=== PATIENT | male | born 1950 | race Caucasian/White ===

== ENCOUNTER 2016-09-26 08:16 | Emergency (ER) | payer OTHER, MEDICARE ==
[~2016-09-26] VITALS: Wt 81.9 kg
[2016-09-26] MEDS ORDERED: HYDROCODONE/APAP (10/325) TAB PO ONE (09:30)
--- NOTE | 2016-09-26 09:33 | ERD ---
ER Documentation Chief Complaint Date/Time DATE: 09/26/16 TIME: 09:31 Chief Complaint L WRIST PAIN AND SWELLING FROM A GLF THIS AM. GOOD PULSES. + DEFORMITY HPI Patient is a 66-year-old male who presents with sudden onset, constant, moderate left wrist pain after a mechanical ground-level fall onto an outstretched hand. He reports that he got up to walk to the bathroom to urinate this morning and lost his balance and fell onto his left arm. He denies hitting his head or other injury. He denies loss of consciousness. He is right-hand dominant. ROS All systems reviewed and are negative except as per history of present illness. Medications Home Meds Active Scripts Tramadol HCl (Tramadol HCl) 50 Mg Tablet, 50 MG PO Q6H Y for PAIN, #24 TAB Prov:KIRSTY UMANZOR MD 09/26/16 PMhx/Soc Past medical history: Hypertension Past surgical history: Denies Social history: Drinks 4-5 alcoholic drinks per day. Smokes cigarettes. Denies illicit drugs. Hx Alcohol Use: No Hx Substance Use: No Hx Tobacco Use: No Smoking Status: Never smoker FmHx Family History: No coronary disease, No diabetes Physical Exam Vitals Vital Signs Date Time Temp Pulse Resp B/P Pulse Ox O2 Delivery O2 Flow Rate FiO2 09/26/16 08:28 97.9 81 20 137/78 98 Physical Exam Const: Alert, no acute distress Head: Atraumatic Eyes: Normal Conjunctiva, no pallor, no icterus ENT: Normal External Ears, Nose and Mouth. Neck: Full range of motion..~ No meningismus. No midline tenderness Resp: Clear to auscultation bilaterally, no wheezes, no rales Cardio: Regular rate and rhythm, no murmurs Abd: Soft, non tender, non distended. Skin: No petechiae or rashes Back: No midline or flank tenderness Ext: No cyanosis, or edema. Mild deformity and tenderness to left wrist. No elbow or forearm or hand tenderness. Moves and feels all digits appropriately. Compartments soft. 2 second cap refill all digits. Skin intact. Neur: Awake and alert, cranial nerves II through XII intact bilaterally, strength and sensation full in 4 extremities. Psych: Normal Mood and Affect Results 24 hrs Current Medications Medications (Trade) Dose Ordered Sig/Kristine Route PRN Reason Start Time Stop Time Status Last Admin Dose Admin Acetaminophen/ Hydrocodone Bitart ([place] (10)) 1 tab ONCE ONCE PO 09/26/16 09:30 09/26/16 09:31 DC 09/26/16 09:30 Procedures/MDM Patient is a 66-year-old male who presents with mechanical ground-level fall onto outstretched hand. His x-ray shows slightly angulated distal radius fracture. He is neurovascularly intact. Skin is intact, compartments are soft. I did not believe that an acute reduction was necessary. The patient was splinted in a sugar tong splints, and advised to follow-up with an orthopedic surgeon in the next week. I provided a prescription for tramadol for pain. There are no signs of secondary injury and no history to suggest syncope. Departure Diagnosis: Primary Impression: Distal radius fracture Encounter type: initial encounter Fracture type: closed Fracture morphology : unspecified fracture morphology Laterality: left Qualified Code: S52.502A - Closed fracture of distal end of left radius, unspecified fracture morphology, initial encounter Condition: Stable KIRSTY UMANZOR MD Sep 26, 2016 09:33
--- NOTE | 2016-09-26 09:45 | RADRPT ---
PROCEDURE: XR Wrist. CLINICAL INDICATION: Wrist pain TECHNIQUE: AP, lateral and oblique views of the left wrist were performed. COMPARISON: No prior studies are available for comparison. FINDINGS: There is a comminuted mildly displaced transverse fracture of the left distal radial metaphysis. Th ere is a displaced fracture of the ulnar styloid. The carpal bones appear aligned.. Diffuse soft ti ssue swelling is present.. IMPRESSION: Comminuted mildly displaced transverse fracture of the left distal radial metaphysis. Displaced ulnar styloid fracture. RPTAT: QQ .Adrien Duffy MD, MD Date Time Electronically viewed and signed by .Adrien Duffy MD, MD on 09/26/2016 09:45 .L/
[2016-09-26] MEDS ORDERED: TRAM50TA2 PO (12:07)
== END 2016-09-26 12:39 | disposition home or self-care (01) ==
LOC: E/R 08:16
DX: S52.612A Displaced fracture of left ulna styloid process, initial encounter for closed fracture (principal); S59.202A Unspecified physeal fracture of lower end of radius, left arm, initial encounter for closed fracture; F17.210 Nicotine dependence, cigarettes, uncomplicated; I10 Essential (primary) hypertension; W18.39XA Other fall on same level, initial encounter; Y92.002 Bathroom of unspecified non-institutional (private) residence as the place of occurrence of the external cause